=== PATIENT | male | born 1970 | race Caucasian/White ===

== ENCOUNTER 2017-05-30 17:54 | Emergency (ER) | payer OTHER ==
[~2017-05-30] VITALS: Ht 167.6 cm; Wt 77.5 kg
[~2017-05-30 17:54] MED LIST: SYNTHROID
[2017-05-30 17:59] VITALS: Ht 167.6 cm; Wt 77.5 kg
[2017-05-30] MEDS ORDERED: ACETAMINOPHEN 325 MG TAB PO ONE (20:00)
[2017-05-30 20:39] LABS: BASOPHILS % 0.2 % (0.0-2.0); EOSINOPHILS % 0.1 % (0.0-7.0); HEMATOCRIT 44.2 % (42.0-52.0); HEMOGLOBIN 15.2 g/dl (14.0-18.0); LYMPHOCYTES # 1.9 10^3/ul (0.8-2.9); LYMPHOCYTES % 11.1 % (15.0-51.0); MEAN CORPUSCULAR HEMOGLOBIN 31.2 pg (29.0-33.0); MEAN CORPUSCULAR HGB CONC 34.4 g/dl (32.0-37.0); MEAN CORPUSCULAR VOLUME 90.8 fl (82.0-101.0); MEAN PLATELET VOLUME 10.8 fl (7.4-10.4); MONOCYTE # 1.5 10^3/ul (0.3-0.9); MONOCYTES % 8.7 % (0.0-11.0); NEUTROPHIL # 13.5 10^3/ul (1.6-7.5); NEUTROPHILS % 79.4 % (39.0-77.0); PLATELET COUNT 168 10^3/UL (140-415); RED BLOOD COUNT 4.87 10^6/ul (4.70-6.10); RED CELL DISTRIBUTION WIDTH 12.1 % (11.5-14.5); WHITE BLOOD COUNT 17.1 10^3/ul (4.8-10.8)
[2017-05-30 20:51] LABS: ADD UMIC YES; UR ASCORBIC ACID NEGATIVE (NEGATIVE); UR BILIRUBIN (Dip) NEGATIVE (NEGATIVE); UR BLOOD (Dip) 2+ mg/dL (NEGATIVE); UR CLARITY CLEAR (CLEAR); UR COLOR YELLOW (YELLOW); UR GLUCOSE (Dip) NEGATIVE (NEGATIVE); UR KETONES (Dip) TRACE mg/dL (NEGATIVE); UR LEUKOCYTE ESTERASE (Dip) 2+ Leu/ul (NEGATIVE); UR NITRITE (Dip) NEGATIVE (NEGATIVE); UR RBC 4 /HPF (0-5); UR SPECIFIC GRAVITY (Dip) 1.006 (1.003-1.030); UR TOTAL PROTEIN (Dip) NEGATIVE (NEGATIVE); UR UROBILINOGEN (Dip) NEGATIVE (NEGATIVE)
[2017-05-30] MEDS ORDERED: SOD CHLORIDE 0.9% 1,000 ML IV ONE (20:59)
[2017-05-30] MEDS ORDERED: CEFTRIAXONE 1 GM/50 ML (PMX) 50 ML IVPB ONE (21:00)
[2017-05-30 21:01] LABS: ALBUMIN 4.5 g/dl (3.3-4.9); ALBUMIN/GLOBULIN RATIO 1.36; BILIRUBIN,INDIRECT 1.1 mg/dl (0-1.1); BILIRUBIN,TOTAL 1.1 mg/dl (0.2-1.3); CALCIUM 9.4 mg/dl (8.4-10.2); CREATININE 1.15 mg/dl (0.61-1.24); POTASSIUM 3.9 mmol/L (3.5-5.1); TOTAL PROTEIN 7.8 g/dl (6.1-8.1)
--- NOTE | 2017-05-30 23:41 | RADRPT ---
PROCEDURE: CT ABDOMEN AND PELVIS WITH CONTRAST: CLINICAL INDICATION: 46 years of age, male, right lower quadrant pain x 2 days and dysuria.. COMPARISON: None available. TECHNIQUE: CT of the abdomen and pelvis was performed following administration of 80 mL IV Omnipaqu e-300. Oral contrast was not administered prior to the examination. Coronal and sagittal reformatted images were obtained from the axial source images. Images were revi ewed on a high-resolution PACS workstation. Dose information: Based on a 32 cm phantom, the estimated radiation dose (CTDIvol mGy for each serie s in this exam is 9. The estimated cumulative dose (DLP mGy-cm) is 543. One or more of the following dose reduction techniques were used: - Automated exposure control. - Adjustment of the mA and/or kV according to patient size. - Use of iterative reconstruction technique. FINDINGS: LUNG BASES: Normal. ABDOMEN/PELVIS: Liver: Normal. Portal veins, splenic vein and SMV are patent. Hepatic veins are patent. Gallbladder: Normal. Bile ducts: No intrahepatic or extrahepatic biliary duct dilatation. Spleen: Normal. Pancreas: Normal. Adrenal glands: Normal. Kidneys and ureters: Both kidneys enhance and excrete contrast normally without hydronephrosis. Nega tive for filling defects in either pelvicaliceal system or ureter. Aorta and IVC: Aorta is normal caliber and patent. IVC is patent. Lymph nodes: Normal. Gastrointestinal tract: Normal. Appendix: Not identified. Negative for inflammatory changes at cecal pole in region of appendix. Bladder: There is mild thickening of the wall of the urinary bladder with mucosal hyperenhancement. Negative for edema in the surrounding fat. Pelvic Organs: Prostate gland and seminal vesicles are unremarkable. Peritoneal cavity: No free fluid or free intraperitoneal air. Abdominal wall: Normal. BONES: Musculoskeletal: Degenerative changes in spine. No suspicious bone lesions. IMPRESSION: 1. Mild wall thickening of the urinary bladder with mucosal hyperenhancement may indicate cystitis. Recommend correlation with urinalysis. Kidneys appear normal. 2. Appendix is not identified. Negative for inflammatory changes at cecal pole in region of appendi x. RPTAT: HCTS Simone Blank, Physician Date Time Electronically viewed and signed by Simone Blank, Physician on 05/30/2017 23:40 CS/
[2017-05-30] MEDS ORDERED: SOD CHLORIDE 0.9% 100 ML ONE (23:46)
[2017-05-30] MEDS ORDERED: IOHEXOL 300MG/ML 150 ML BTL ONE (23:46)
[2017-05-30] MEDS ORDERED: CIPR500T4 PO (23:46)
[2017-05-30] MEDS ORDERED: IBUP-1542 PO (23:46)
--- NOTE | 2017-05-30 23:50 | ERD ---
ER Documentation Chief Complaint Date/Time DATE: 05/30/17 TIME: 23:48 Chief Complaint Complains of urine problem and fever HPI This 46-year-old male complains of dysuria and fever for last 3 days. Denies any vomiting, chest pain or shortness of breath. Some mild left upper quadrant abdominal pain but no right lower quadrant or right upper quadrant pain. See previous known problems with his genitourinary system. Denies penile discharge. ROS All systems reviewed and are negative except as per history of present illness. Medications Home Meds Active Scripts Ciprofloxacin Hcl* (Ciprofloxacin Hcl*) 500 Mg Tablet, 500 MG PO BID for 10 Days , TAB Prov:ELLEN SEYMOUR MD 05/30/17 Ibuprofen* (Motrin*) 600 Mg Tab, 600 MG PO Q6, #20 TAB Prov:ELLEN SEYMUOR MD 05/30/17 Reported Medications Synthroid 04/18/10 Allergies Allergies: Coded Allergies: No Known Drug Allergies (Verified Allergy, Mild, 04/18/10) PMhx/Soc Medical and Surgical Hx: pt denies Medical Hx, pt denies Surgical Hx History of Surgery: No Anesthesia Reaction: No Hx Neurological Disorder: No Hx Respiratory Disorders: No Hx Cardiac Disorders: No Hx Psychiatric Problems: No Hx Miscellaneous Medical Probl: No Hx Alcohol Use: No Hx Substance Use: No Hx Tobacco Use: No Smoking Status: Never smoker Physical Exam Vitals Vital Signs Date Time Temp Pulse Resp B/P Pulse Ox O2 Delivery O2 Flow Rate FiO2 05/30/17 17:59 102.5 106 20 109/67 98 Physical Exam Const: [], [id number]. Head: Atraumatic Eyes: Normal Conjunctiva ENT: Normal External Ears, Nose and Mouth. Neck: Full range of motion..~ No meningismus. Resp: Clear to auscultation bilaterally Cardio: Regular rate and rhythm, no murmurs Abd: Soft, non tender, non distended. Normal bowel sounds Skin: No petechiae or rashes Back: No midline or flank tenderness Ext: No cyanosis, or edema Neur: Awake and alert Psych: Normal Mood and Affect Result Diagram: 05/30/17200905/30/172009 Results 24 hrs Laboratory Tests Test 05/30/17 20:10 White Blood Count 17.110^3/ul Red Blood Count 4.8710^6/ul Hemoglobin 15.2g/dl Hematocrit 44.2% Mean Corpuscular Volume 90.8fl Mean Corpuscular Hemoglobin 31.2pg Mean Corpuscular Hemoglobin Concent 34.4g/dl Red Cell Distribution Width 12.1% Platelet Count 38700^3/UL Mean Platelet Volume 10.8fl Neutrophils % 79.4% Lymphocytes % 11.1% Monocytes % 8.7% Eosinophils % 0.1% Basophils % 0.2% Nucleated Red Blood Cells % 0.0/100WBC Neutrophils # 13.510^3/ul Lymphocytes # 1.910^3/ul Monocytes # 1.510^3/ul Eosinophils # 0.010^3/ul Basophils # 0.010^3/ul Nucleated Red Blood Cells # 0.010^3/ul Urine Color YELLOW Urine Clarity CLEAR Urine pH 6.0 Urine Specific [place] 1.006 Urine Ketones TRACEmg/dL Urine Nitrite NEGATIVEmg/dL Urine Bilirubin NEGATIVEmg/dL Urine Urobilinogen NEGATIVEmg/dL Urine Leukocyte Esterase 2+Radha/ul Urine Microscopic RBC 4/HPF Urine Microscopic WBC 67/HPF Urine Hemoglobin 2+mg/dL Urine Glucose NEGATIVEmg/dL Urine Total Protein NEGATIVEmg/dl Sodium Level 138mmol/L Potassium Level 3.9mmol/L Chloride Level 100mmol/L Carbon Dioxide Level 28mmol/L Anion Gap 14 Blood Urea Nitrogen 18mg/dl Creatinine 1.15mg/dl Glucose Level 102mg/dl Calcium Level 9.4mg/dl Total Bilirubin 1.1mg/dl Direct Bilirubin 0.00mg/dl Indirect Bilirubin 1.1mg/dl Aspartate Amino Transf (AST/SGOT) 55IU/L Alanine Aminotransferase (ALT/SGPT) 67IU/L Alkaline Phosphatase 99IU/L Total Protein 7.8g/dl Albumin 4.5g/dl Globulin 3.30g/dl Albumin/Globulin Ratio 1.36 Lipase 78U/L Current Medications Medications (Trade) Dose Ordered Sig/Tez Route PRN Reason Start Time Stop Time Status Last Admin Dose Admin Acetaminophen 650 mg 650 mg ONCE ONCE PO 05/30/17 20:00 05/30/17 20:01 DC 05/30/17 20:31 Ceftriaxone Sodium 50 ml @ 100 mls/hr ONCE ONCE IVPB 05/30/17 21:00 05/30/17 21:29 DC 05/30/17 21:25 Sodium Chloride (NS) 1,000 ml @ 0 mls/hr Q0M ONCE IV 05/30/17 20:59 05/30/17 21:01 DC 05/30/17 21:24 IV Flush 10 ml 10 ml STK-MED ONCE .ROUTE 05/30/17 23:46 05/30/17 23:47 DC Sodium Chloride (NS) 100 ml @ ud STK-MED ONCE .ROUTE 05/30/17 23:46 05/30/17 23:47 DC Iohexol (Omnipaque 300mg/ ml) 150 ml STK-MED ONCE .ROUTE 05/30/17 23:46 05/30/17 23:47 DC Procedures/MDM Shows hemoglobin, leukocytes and was sent for culture. Patient has not positive nitrates as well. CBC shows white blood cell count of 17. CMP is normal. And creatinine is normal. Given the uncertain cause of UTI CT abdomen pelvis was performed which shows thickening of the urinary bladder with no additional acute findings or abscess or additional intra-abdominal etiologies for fever. Patient was given Rocephin 1 g IV and 1 L normal saline IV and will be treated with Cipro and ibuprofen at home and instructions for fluids and primary care follow-up and return precautions. Be amenable to outpatient treatment as he is feels much better after observation treatment. The patient was stable with no new complaints during the ER course. Clinically, there is no current evidence to suggest meningitis, sepsis, acute abdomen, pneumonia, acute coronary syndrome, pulmonary embolism, or any other emergent condition appearing to require further evaluation or hospitalization. The patient should certainly return for any new or worsening symptoms per the aftercare instructions. They should otherwise follow-up with her primary care doctor for reevaluation this week. Disclaimer: Inadvertent spelling and grammatical errors are likely due to EHR/dictation software use and do not reflect on the overall quality of patient care. Also, please note that the electronic time recorded on this note does not necessarily reflect the actual time of the patient encounter. Departure Diagnosis: Primary Impression: Fever Fever type: unspecified Qualified Code: R50.9 - Fever, unspecified fever cause Additional Impression: Cystitis Condition: Stable Patient Instructions: Cystitis, Fever Control (Adult) Additional Instructions: Emanations today show urine infection without additional complications. Drink plenty of fluids at home recheck for vomiting, fever over additional 48 hours, new or worsening symptoms. Primary care doctor for follow-up. ELLEN SEYMOUR MD May 30, 2017 23:50
[2017-05-30 23:59] VITALS: BP 111/74; PULSE 82; RESP 16; TEMP 99.3
== END 2017-05-31 00:01 | disposition home or self-care (01) ==
LOC: FTE 17:54
DX: N30.90 Cystitis, unspecified without hematuria (principal)
CPT/HCPCS: 36415; 74177; 80053; 81001; 83690; 85025; 87086; 96374; J0696; J7030; Q9967; Z7502; Z7610